=== PATIENT | male | born 1965 | race Hispanic/Latino ===

== ENCOUNTER 2018-02-19 12:34 | Day surgery (SDC) | payer MEDICARE ==
[2018-02-19] MEDS ORDERED: DILAUDID IV PRN ×2 (13:23→15:56)
--- NOTE | 2018-02-19 13:24 | Anesthesia Day of Surgery ---
Anesthesia Day of Surgery - Day of Surgery Patient Examined: Yes Patient H&P Reviewed: Yes Patient is NPO: Yes
--- NOTE | 2018-02-19 13:25 | Anesthesia Consultation ---
Anesthesia Consult and Med Hx Date of service: 02/19/18 - Airway Anesthetic Teeth Evaluation: Good ROM Head & Neck: Adequate Mental/Hyoid Distance: Adequate Mallampati Class: Class II Intubation Access Assessment: Probably Good - Pulmonary Exam CTA: Yes - Cardiac Exam Cardiac Exam: RRR - Pre-Operative Health Status ASA Pre-Surgery Classification: ASA2 Proposed Anesthetic Plan: General (Ga with LMA) - Pulmonary Hx Smoking: Yes (FORMER) - Central Nervous System Hx Psychiatric Problems: No - Other Systems Hx Alcohol Use: No Hx Substance Use: No Hx Cancer: No
[2018-02-19] MEDS ORDERED: VERSED IV NR (14:00)
[2018-02-19] MEDS ORDERED: LACTATED RINGERS 1,000 ML IV SCH ×3 (14:00)
[2018-02-19] MEDS ORDERED: HEPARIN SUB-Q NR (14:30)
[2018-02-19] MEDS ORDERED: ANCEF/STERILE WATER 2 GM/20 ML IV NR (15:00)
[2018-02-19] MEDS ORDERED: DECADRON ONE (15:50)
[2018-02-19] MEDS ORDERED: XYLOCAINE MPF 2% ONE (15:50)
[2018-02-19] MEDS ORDERED: ZOFRAN ONE (15:50)
[2018-02-19] MEDS ORDERED: DIPRIVAN 10 MG/ML IV ONE (15:51)
[2018-02-19] MEDS ORDERED: SUBLIMAZE ONE (15:51)
[2018-02-19] MEDS ORDERED: ZOFRAN IV PRN (15:56)
[2018-02-19] MEDS ORDERED: MARCAINE 0.25% INFILTRATI ONE ×2 (15:58→16:20)
[2018-02-19] MEDS ORDERED: NUPERCAINAL ONE (15:58)
--- NOTE | 2018-02-19 16:25 | Post Operative Note ---
Pre-op diagnosis: Thrombosed external hemorrhoids, 2 columns Post-op diagnosis: same Procedure: Excision of thrombosed external hemorrhoids, 2 columns Anesthesia: other (LMA) Surgeon: EDU CALL Estimated blood loss: minimal Pathology: none Specimen disposition: discarded Condition: stable Disposition: PACU
[2018-02-19] MEDS ORDERED: TORADOL ONE (16:28)
[2018-02-19] MEDS ORDERED: NUPERCAINAL PR ONE (16:28)
[2018-02-19] MEDS ORDERED: NACL 0.9% IR ONE (16:28)
[2018-02-19 17:50] VITALS: BP 116/72
--- NOTE | 2018-02-23 14:32 | Operative Report ---
Operative Report Operative Report: Date of operation: 02/19/2018 Pre-op dx: Thrombosed external hemorrhoids, 2 columns Post-op dx: Same Operation: Excision of thrombosed external hemorrhoids, 2 columns Surgeon: Otis Castillo MD Anesthesia: LMA EBL: Minimal There were no complications, drains, specimens or cultures. Description of procedure: Pt was placed supine on the OR table. General anesthesia by LMA was administered. Pt was repositioned to a dorsal lithotomy position. Perianal area was prepped and draped. A bi-valve anal retractor was inserted into the rectum to maximize exposure of the thrombosed external hemorrhoids. The hemorrhoids were excised with Metzenbaum scissors. Bleeding was controlled with the Bovie. This was repeated for the 2nd column of thrombosed external hemorrhoids. The anal canal was packed with Xeroform gauze impregnated with Nupercaine cream. Pt tolerated the procedure well. He was taken to PACU in stable condition.
== END 2018-02-19 12:35 | disposition home or self-care (01) ==
LOC: OR 12:34
PROVIDERS: ATTEND Surgery
DX: K64.5 Perianal venous thrombosis (principal); M19.90 Unspecified osteoarthritis, unspecified site; Z87.891 Personal history of nicotine dependence; Z98.890 Other specified postprocedural states; Z90.49 Acquired absence of other specified parts of digestive tract
CPT/HCPCS: 46320; J0690; J1100; J1644; J1885; J2250; J2405; J2704; J3010; J7120

== ENCOUNTER 2018-04-07 11:02 | Day surgery (SDC) | payer MEDICARE ==
[~2018-04-07 11:02] MED LIST: DIPRIVAN 10 MG/ML IV ONE; NACL 0.9% 1000 ML 1,000 ML IV SCH
[2018-04-07] MEDS ORDERED: DIPRIVAN 10 MG/ML IV ONE ×2 (12:28)
[2018-04-07 13:52] VITALS: BP 108/74
--- NOTE | 2018-04-07 14:12 | Procedure Note ---
Date of procedure: 04/07/18 Pre-op diagnosis: H/o colon polyps Post-op diagnosis: same Procedure: Colonoscopy to cecum Description of procedure: Pt was placed in a left side down position. He was sedated by anesthesia. The colonoscope was inserted into his rectum and was advanced retrograde while directly visualizing the colonic lumen. The prep was adequate. When the cecum was reached, the scope was slowly withdrawn with careful circumferential visualization of the colonic mucosa. The examination included a retroflexed view of the distal rectum. No polyps, tumors, diverticula, AVM's or mucosal ulcerations were noted. Insufflated air was aspirated from the rectum and the scope withdrawn. Pt tolerated the procedure well. He was recovered in the GI suite. Findings: Normal colonoscopy to cecum Anesthesia: MAC Surgeon: EDU CALL Estimated blood loss: none Pathology: none Condition: stable Disposition: no change
== END 2018-04-07 11:03 | disposition home or self-care (01) ==
LOC: GIO 11:02
PROVIDERS: ATTEND Surgery
DX: Z12.11 Encounter for screening for malignant neoplasm of colon (principal); M19.90 Unspecified osteoarthritis, unspecified site; F17.200 Nicotine dependence, unspecified, uncomplicated; Z79.899 Other long term (current) drug therapy; Z90.49 Acquired absence of other specified parts of digestive tract; Z86.010 Personal history of colon polyps; Z98.890 Other specified postprocedural states
CPT/HCPCS: G0105; J2704; J7030